=== PATIENT | male | born 1985 | race Caucasian/White ===

== ENCOUNTER 2019-04-09 09:21 | Emergency (ER) | payer OTHER ==
[~2019-04-09] VITALS: Ht 180.3 cm; Wt 97.5 kg
[~2019-04-09 09:21] MED LIST: NOHOMEMEDICATIONS; NORCO 5-325 TA1 EACH PO; TOBREX3.5 GM OP
[2019-04-09 10:36] VITALS: BP 132/72
== END 2019-04-09 10:36 | disposition home or self-care (01) ==
LOC: ER 09:21
DX: S50.11XA Contusion of right forearm, initial encounter (principal); F17.210 Nicotine dependence, cigarettes, uncomplicated; W18.49XA Other slipping, tripping and stumbling without falling, initial encounter; Y93.89 Activity, other specified; Y92.89 Other specified places as the place of occurrence of the external cause; Y99.8 Other external cause status